=== PATIENT | female | born 1940 | race Two or more races ===

== ENCOUNTER 2019-02-28 10:48 | Emergency (ER) | payer OTHER ==
[~2019-02-28] VITALS: Ht 160 cm; Wt 53.1 kg
[2019-02-28] MEDS ORDERED: PROPRANOLOL HCL60 M1 (11:29)
[2019-02-28] MEDS ORDERED: CARBIDOPA-LEVO1 EAC4 (11:29)
[2019-02-28] MEDS ORDERED: CARBIDOPA-LEVO1 EA12 (11:29)
[2019-02-28] MEDS ORDERED: CLONAZEPAM0.5 MG (11:30)
[2019-02-28] MEDS ORDERED: CLONAZEPAM1 MG PO (11:30)
== END 2019-02-28 13:41 | disposition home or self-care (01) ==
LOC: ER 10:48
DX: S00.83XA Contusion of other part of head, initial encounter (principal); R68.84 Jaw pain; W06.XXXA Fall from bed, initial encounter; Y93.89 Activity, other specified; Y92.013 Bedroom of single-family (private) house as the place of occurrence of the external cause; Y99.8 Other external cause status